=== PATIENT | female | born 1980 | race Caucasian/White ===

== ENCOUNTER 2019-11-20 07:38 | Outpatient (CLI) | payer OTHER, SELFPAY ==
--- NOTE | ~2019-11-20 | MM_ITS ---
EXAMINATION: MM screening [facility] BI w ever HISTORY: Screening mammogram TECHNIQUE: Craniocaudal and mediolateral oblique 3-D tomosynthesis images were obtained and synthetic 2-D images were generated. CAD analysis was submitted and interpreted. COMPARISON: No prior mammogram is available for comparison at this institution. BREAST PARENCHYMAL COMPOSITION: The breasts are extremely dense, which lowers the sensitivity of mamm ography. FINDINGS: There is irregular asymmetric density in the lower inner right breast at mid depth (MLO Doroteo osynthesis image 42/64). Diagnostic right mammogram is recommended, with ultrasound if required. Otherwise there is no evidence of suspicious mass, calcification, or architectural distortion to sugg est malignancy in either breast. There has been no suspicious interval change. IMPRESSION: 1. Right breast mammographic asymmetry 2. Diagnostic right mammogram is recommended, with ultrasound if required BI-RADS Category 0: Incomplete: Needs additional imaging evaluation. Reviewed, dictated and finalized at location A.
== END 2019-11-20 07:39 | disposition home or self-care (01) ==
LOC: ANHIMG 07:40
PROVIDERS: PCP Family Medicine; Visit Provider Obstetrics & Gynecology
DX: Z12.31 Encounter for screening mammogram for malignant neoplasm of breast (principal); R92.8 Other abnormal and inconclusive findings on diagnostic imaging of breast
CPT/HCPCS: 77063; 77067

== ENCOUNTER 2019-12-08 11:46 | Outpatient (CLI) | payer OTHER, SELFPAY ==
--- NOTE | ~2019-12-08 | MMUS_ITS ---
EXAMINATION: MM diagnostic mammo unilat RT, US breast RT limited HISTORY: Follow-up right breast asymmetry TECHNIQUE: Additional 3-D tomosynthesis images of the right breast were performed and synthetic 2-D i mages were generated. CAD analysis was submitted and interpreted. High resolution right breast ultras ound was performed. COMPARISON: 11/20/2019 BREAST PARENCHYMAL COMPOSITION: The breasts are heterogenously dense, which may obscure small masses. FINDINGS: MAMMOGRAPHIC FINDINGS: There are no suspicious masses, calcifications or architectural distortion in the right breast to sug gest malignancy. ULTRASOUND: Right breast ultrasound: At 4:00, 2 cm from the nipple, there is a 4 mm cyst. No suspicious masses to suggest malignancy. IMPRESSION: 1. No evidence for malignancy in the right breast. 2. Routine yearly screening mammogram and regular clinical breast examination are recommended. BI-RADS Category 2: Benign finding(s). Reviewed, dictated and finalized at location A. IMPRESSION: 1. No evidence for malignancy in the right breast. 2. Routine yearly screening mammogram and regular clinical breast examination a re recommended. BI-RADS Category 2: Benign finding(s).
== END 2019-12-08 11:47 | disposition home or self-care (01) ==
LOC: ANHIMG 11:47
PROVIDERS: PCP Family Medicine; Visit Provider Obstetrics & Gynecology
DX: R92.8 Other abnormal and inconclusive findings on diagnostic imaging of breast (principal)
CPT/HCPCS: 76642; 77065

== ENCOUNTER 2020-12-08 12:13 | Outpatient (CLI) | payer OTHER, SELFPAY ==
--- NOTE | ~2020-12-08 | MM_ITS ---
EXAMINATION: MM screening [facility] BI w ever HISTORY: Screening mammogram TECHNIQUE: Craniocaudal and mediolateral oblique 3-D tomosynthesis images were obtained and synthetic 2-D images were generated. CAD analysis was submitted and interpreted. COMPARISON: No prior mammogram is available for comparison at this institution. BREAST PARENCHYMAL COMPOSITION: The breasts are almost entirely fatty. FINDINGS: There is no evidence of suspicious mass, calcification, or architectural distortion to sugg est malignancy in either breast. There has been no suspicious interval change. IMPRESSION: 1. No mammographic evidence of malignancy. 2. Recommend routine screening mammography in one year. BI-RADS Category 1: Negative Reviewed, dictated and finalized at location A.
== END 2020-12-08 12:14 | disposition home or self-care (01) ==
LOC: ANHIMG 12:15
PROVIDERS: PCP Family Medicine; Visit Provider Obstetrics & Gynecology
DX: Z12.31 Encounter for screening mammogram for malignant neoplasm of breast (principal)
CPT/HCPCS: 77063; 77067

== ENCOUNTER 2022-04-03 08:38 | Outpatient (CLI) | payer OTHER, SELFPAY ==
--- NOTE | ~2022-04-03 | MM_ITS ---
EXAMINATION: MM screening [facility] BI w ever HISTORY: Screening TECHNIQUE: Craniocaudal and mediolateral oblique 3-D tomosynthesis images were obtained and synthetic 2-D images were generated. CAD analysis was submitted and interpreted. COMPARISON: Comparison to multiple prior studies sequentially, with oldest reviewed study dated 11/19. BREAST PARENCHYMAL COMPOSITION: The breasts are extremely dense, which lowers the sensitivity of mamm ography FINDINGS: There is a new focal asymmetry in the upper outer quadrant of the right breast anteriorly. The left breast is stable without evidence for malignancy. IMPRESSION: 1. New focal right breast asymmetry. 2. Additional mammographic views and possible breast ultrasound are recommended. BI-RADS Category 0: Incomplete: Needs additional imaging evaluation. Reviewed, dictated and finalized at location A. 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 New focal right breast asymmetry. 2. Additional mammographic views and possible breast ultrasound are recommended . BI-RADS Category 0: Incomplete: Needs additional imaging evaluation.
== END 2022-04-03 08:39 | disposition home or self-care (01) ==
LOC: ANHIMG 08:39
PROVIDERS: PCP Nurse Practitioner Family; Visit Provider Obstetrics & Gynecology
DX: Z12.31 Encounter for screening mammogram for malignant neoplasm of breast (principal); N64.89 Other specified disorders of breast
CPT/HCPCS: 77063; 77067

== ENCOUNTER 2022-04-20 12:15 | Outpatient (CLI) | payer OTHER, SELFPAY ==
--- NOTE | ~2022-04-20 | MMUS_ITS ---
EXAMINATION: MM diagnostic [facility] RT w ever, US breast RT limited HISTORY: New focal right breast asymmetry in upper outer quadrant anteriorly was reported on 3 20 mammogram TECHNIQUE: Additional 3-D tomosynthesis images of the right breast were performed and synthetic 2-D i mages were generated. Rolled medial craniocaudal and rolled lateral craniocaudal views. CAD analysis was submitted and interpreted. High resolution subareolar right breast ultrasound was performed. COMPARISON: 04/03/2022 bilateral screening mammogram FINDINGS: MAMMOGRAPHIC FINDINGS: There is heterogeneously dense stroma the right breast but no suspicious mass or architectural distor tion is evident. No malignant calcification, skin thickening or retraction is detected. ULTRASOUND: No suspicious mass or shadowing is detected in the subareolar area. IMPRESSION: 1. No mammographic evidence of malignancy 2. Routine annual mammographic screening is recommended BI-RADS Category 1: Negative Reviewed, dictated and finalized at location A. R IMPRESSION: 1. No mammographic evidence of malignancy 2. Routine annual mammographic screening is recommended BI-RADS Category 1: Negative
== END 2022-04-20 12:16 | disposition home or self-care (01) ==
PROVIDERS: PCP Nurse Practitioner Family; Visit Provider Obstetrics & Gynecology
DX: R92.8 Other abnormal and inconclusive findings on diagnostic imaging of breast (principal)
CPT/HCPCS: 76642; 77061; 77065; G0279

== ENCOUNTER 2023-05-07 14:40 | Outpatient (CLI) | payer OTHER, SELFPAY ==
--- NOTE | ~2023-05-07 | MM_ITS ---
EXAMINATION: MM screening [facility] BI w ever HISTORY: Screening mammogram TECHNIQUE: Craniocaudal and mediolateral oblique 3-D tomosynthesis images were obtained and synthetic 2-D images were generated. CAD analysis was submitted and interpreted. COMPARISON: April 20, 2022 diagnostic right mammogram and limited right breast ultrasound April 03, 2022, December 08, 2020 bilateral screening mammogram examinations BREAST PARENCHYMAL COMPOSITION: The breasts are extremely dense, which lowers the sensitivity of mamm ography. FINDINGS: There is no evidence of suspicious mass, calcification, or architectural distortion to sugg est malignancy in either breast. There has been no suspicious interval change. IMPRESSION: 1. No mammographic evidence of malignancy. 2. Recommend routine screening mammography in one year. BI-RADS Category 1: Negative Reviewed, dictated and finalized at location A. 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
== END 2023-05-07 14:41 | disposition home or self-care (01) ==
LOC: ANHIMG 14:55
PROVIDERS: PCP Family Medicine; Visit Provider Obstetrics & Gynecology
DX: Z12.31 Encounter for screening mammogram for malignant neoplasm of breast (principal)
CPT/HCPCS: 77063; 77067

== ENCOUNTER 2024-05-10 08:07 | Outpatient (CLI) | payer OTHER, SELFPAY ==
--- NOTE | ~2024-05-10 | MM_ITS ---
EXAMINATION: MM screening mar[facility] BI w ever HISTORY: Screening mammogram TECHNIQUE: Craniocaudal and mediolateral oblique 3-D tomosynthesis images were obtained and synthetic 2-D images were generated. CAD analysis was submitted and interpreted. COMPARISON: 05/07/2023, 04/03/2022, 12/08/2020 BREAST PARENCHYMAL COMPOSITION:Dense: The breasts are extremely dense, which lowers the sensitivity o f mammography. FINDINGS: No suspicious mass, calcification, or architectural distortion are identified in either naresh ast to suggest malignancy. There has been no suspicious interval change. IMPRESSION: No mammographic evidence of malignancy. Recommend routine screening mammography in one year. BI-RADS Category 1: Negative Reviewed, dictated and finalized at location .
--- OUTSIDE RECORDS SUMMARY | 2024-05-10 08:14 | XMS_ITS | Continuity of Care Document ---
Author Organization [facility] Address [address] [place] [address] [place] [address] Phone Care Team Providers Care Community Arts Officer Name Role Phone Dima Pal MD Unavailable Unavailable Allergies, Adverse Reactions, Alerts Substance Reaction Status Criticality No Known Allergies Active No Inform ation Procedures Procedure Date PREV VISIT, NEW, AGE 18-39 Advance Directives Directive Yes / No Effective Date File Name No Information Encounters Encounter Description Practice Location Reason(s) For Visit Diagnoses Date Provider Providers Copied on Encounter PREV VISIT, NEW, AGE 18-39 [facility], [address] [place], [place], [id number], [place] tel:[phone] [facility] Physical (chief complaint) Dietary surveillance and counselingRoutine Medical ExamRoutine Medical Exam [address], [facility] [place], [id number] , [place]. tel:[phone] Family History Family Member Type Diagnosis Age At Onset Father Problem (finding) Hypertension Father Problem (finding) Alive and well Mother Problem (finding) Alive and well Sister Problem (finding) Alive and well Payers Payer name Insurance type Covered libertarian ID Authoriza tion(s) No Information Social History Type Description Quantity Date Captured Comments Alcohol Use Details No Caffeine Use Details Unknown Tobacco Use Status No Information Smoking Status Never smoker Non-Smoking Tobacco Use Details : No Details Available : No Details Available Sex Female Vital Signs Date / Time: Height Weight BMI Pulse Rate Blood Pressure Temperature Respiratory Rate Body Surface Area Head Circumference BMI percentile Pulse Ox Inhaled Ox 4:56 PM 71.00 in 190.00 lbs 26.5 0 kg/m eter (2) 83 /min 120/85 mm[Hg] 98.6 F 18 /min Chief Complaint And Reason For Visit From encounter dated '04/08/2013 16:42'. Physical (chief complaint) Plan Of Treatment Date Type Action Status No Information History Of Present Illness Encounter Date Complaint History Of Prese nt Illness No Information Instructions Date Instruction Additional Infor triston Dietary counseling Related to Di etary surveillance counseling Decrease caloric intake Related to Dietary surveillance counseling Assessments Type Assessment Date No Information Mental Status Date Cognitive Assessment Orientation - [place] ed to time, place, person, situation.
--- OUTSIDE RECORDS SUMMARY | 2024-05-10 08:14 | XMS_ITS | Data Portability ---
Author Organization [place] [employer], Main Office Address [address] [place] [id number] Care Team Providers Care Cupola Worker Name Role Phone JERALD JURADO Primary Care Provider Assessment Encounter Date Assessment Date Assessment LastModified by Organization Details LastModified Time 09/17/2023 09/17/2023 43 yo F with - WT LOSS PROGRAM - HTN - DEPRESSION - ANXIETY - OBESITY I Annual labs: 12/20/23. Wt: 221(03/21/23) - 215(04/17/23) - 209(05/16/23) - 203(07/16/23) - 199(09/17/23) D/w pt in detail about her findings, recent labs and further plan of care. Form filled out and given to pt. Meds as directed. Diet and exercise explained in detail. Educated about different options for her. BP diary education given. Cont f/u with Gyne as per schedule. Offered to refer to counsellor; but pt declined. HM: WWE - 10/25, normal as per pt. Cont f/u with Gyne as per schedule. Mammo - 05/07/23, normal. Flu - 12/19/22. Tdap - At pharmacy/HD. F/u in 2 months. Annual labs in 12/27. [email or web address] Not available 09/17/2023 10:01:05 11/19/2023 11/19/2023 43 yo F with - WT LOSS PROGRAM - HTN - DEPRESSION - ANXIETY - OVERWEIGHT - H/O OBESITY I Annual labs: 12/20/23. Wt: 221(03/21/23) - 215(04/17/23) - 209(05/16/23) - 203(07/16/23) - 199(09/17/23) - 189(11/19/23) D/w pt in detail about her findings, recent labs and further plan of care. Meds as directed. Diet and exercise explained in detail. Educated about different options for her. BP diary education given. Cont f/u with Gyne as per schedule. Offered to refer to counsellor; but pt declined. HM: WWE - 10/25, normal as per pt. Cont f/u with Gyne as per schedule. Mammo - 05/07/23, normal. Flu - 12/19/22. Tdap - At pharmacy/HD. F/u in 2 months. Annual labs in 12/27. [email or web address] Not available 11/19/2023 17:32:40 01/21/2024 01/21/2024 43 yo F with - WELL ADULT VISIT - WT LOSS PROGRAM - HTN - DEPRESSION - ANXIETY - OVERWEIGHT - H/O OBESITY I Annual labs: 12/20/23. Wt: 221(03/21/23) - 215(04/17/23) - 209(05/16/23) - 203(07/16/23) - 199(09/17/23) - 189(11/19/23) - 182(01/21/24) D/w pt in detail about her findings, recent labs and further plan of care. Will do routine labs. Meds as directed. Diet and exercise explained in detail. Educated about different options for her. BP diary education given. Cont f/u with Gyne as per schedule. Offered to refer to counsellor; but pt declined. HM: WWE - 12/26, normal as per pt. Cont f/u with Gyne as per schedule. Mammo - 05/07/23, normal. Flu - 01/21/24. Tdap - At pharmacy/HD. F/u in 1 month. Annual labs in 12/27. Not available 01/21/2024 09:48:18 02/20/2024 02/20/2024 44 yo F with - WT LOSS PROGRAM - HTN - DEPRESSION - ANXIETY - VIT D DEFICIENCY - OVERWEIGHT - H/O OBESITY I Annual labs: 01/21/24. Annual labs: 12/20/23. Wt: 221(03/21/23) - 215(04/17/23) - 209(05/16/23) - 203(07/16/23) - 199(09/17/23) - 189(11/19/23) - 182(01/21/24) - 180(02/20/24) D/w pt in detail about her findings, recent labs and further plan of care. Meds as directed. Diet and exercise explained in detail. Educated about different options for her. BP diary education given. Cont f/u with Gyne as per schedule. Offered to refer to counsellor; but pt declined. HM: WWE - 12/26, normal as per pt. Cont f/u with Gyne as per schedule. Mammo - 05/07/23, normal. Flu - 01/21/24. Tdap - At pharmacy/HD. F/u in 2 months. Annual labs in 12/27. Not available 02/20/2024 09:19:01 04/28/2024 04/28/2024 44 yo F with - WT LOSS PROGRAM - HTN - DEPRESSION - ANXIETY - VIT D DEFICIENCY - OVERWEIGHT - H/O OBESITY I Annual labs: 01/21/24. Annual labs: 12/20/23. Wt: 221(03/21/23) - 215(04/17/23) - 209(05/16/23) - 203(07/16/23) - 199(09/17/23) - 189(11/19/23) - 182(01/21/24) - 180(02/20/24) - 183(04/28/24) D/w pt in detail about her findings, recent labs and further plan of care. Meds as directed. Diet and exercise explained in detail. Educated about different options for her. BP diary education given. Cont f/u with Gyne as per schedule. Offered to refer to counsellor; but pt declined. HM: WWE - 12/26, normal as per pt. Cont f/u with Gyne as per schedule. Mammo - 05/07/23, normal. Flu - 01/21/24. Tdap - At pharmacy/HD. F/u in 2.5 months. Annual labs in 12/27. Not available 04/28/2024 17:16:59 Plan of Treatment Reminders Order Date Submit Date Provider Last Modified By Organization Details Last Modified Time Details Appointments Follow Up 15 2024 04:15P Reina Jurado MD Not available Not available Not available Lab vitamin D, 25-hydrox y, total, serum [address] [facility], [address] [place], [address], 01/21/2024 11:10:41 HbA1c (hemoglob in A1c), blood [address] [facility], [address] [place], [address], 01/21/2024 11:10:22 CBC w/ auto diff [address] [facility], [address] [place], [address], 01/21/2024 11:08:25 CMP, serum or plasma [address] [facility], [address] [place], [address], 01/21/2024 11:08:47 lipid panel, serum [address] [facility], [address] [place], [address], 01/21/2024 11:09:08 TSH, serum, reflex free T4 [address] [facility], [address] [place], [address], 01/21/2024 11:09:29 urinalysi s complete, reflex culture [address] [facility], [address] [place], [address], 01/21/2024 11:09:55 Referral None recorded. Procedures None recorded. Surgeries None recorded. Imaging None recorded. Medication Orders losartan 50 mg tablet 2024 025 [facility] [facility] [place], [address], 04/28/2024 17:17:29 phentermi ne 37.5 mg tablet 2024 025 [facility] [facility] [place], [address], 04/28/2024 17:17:30 phentermi ne 30 mg capsule 2023 024 [facility] [facility] [place], [address], 02/20/2024 09:15:58 ergocalci ferol (vitamin D2) 1,250 mcg (50,000 unit) capsule 2023 024 [facility] [employer] [facility], [place], [address], 02/20/2024 09:15:55 phentermi ne 30 mg capsule 2023 024 [facility] [facility], [place], [address], 01/21/2024 09:34:08 phentermi ne 30 mg capsule 2023 024 [facility] [address] [employer] [facility] [place], [address], 11/19/2023 17:31:08 losartan 50 mg tablet 2023 024 [facility] [address] [employer], [place], [address], 11/19/2023 17:31:05 phentermi ne 30 mg capsule 2023 024 [facility] [address] [employer], [place], [address], 09/17/2023 09:50:42 fluoxetin e 40 mg capsule 2023 024 [email or web address] [address] [place], [address], 09/17/2023 09:51:17 Patient TargetsNo targets recorded. Patient Instructions Encounter Date Encounter Id Patient Instructions Last Modified By Organization Details Last Modified Time 09/17/2023 [id number] starting a weigh t loss plan: care instructions [email or web address] Not available 09/17/2023 09:50:34 learning about obesity [email or web address] Not available 09/17/2023 09:50:34 11/19/2023 [id number] starting a weigh t loss plan: care instructions [email or web address] Not available 11/19/2023 17:30:58 learning about obesity [email or web address] Not available 11/19/2023 17:30:58 01/21/2024 [id number] starting a weigh t loss plan: care instructions Not available 01/21/2024 09:34:02 02/20/2024 [id number] starting a weigh t loss plan: care instructions [email or web address] Not available 02/20/2024 09:15:48 04/28/2024 [id number] starting a weigh t loss plan: care instructions [email or web address] Not available 04/28/2024 17:17:22 Reason for Referral None Reported. Results Created Date Observation Date Name Description Value Unit Range Abnormal Flag Note LastModifiedBy Organization Detail LastModifiedTime 01/21/2001/21/2024 CBC/C OMPLE TE BLD COUNT W/DIF F white blood cells 5.3 x10'3 /uL 4.2-10 .8 Not Available [facility] (Lab) [address] [place], [address], 01/21/2024 14:01:22 01/21/2001/21/2024 CBC/C OMPLE TE BLD COUNT W/DIF F red blood cells 4.32 x10'6 /uL 3.80-5 .20 Not Available [facility] (Lab) [address] [place], [address], 01/21/2024 14:01:22 01/21/20 24 01/21/2024 CBC/C OMPLE TE BLD COUNT W/DIF F hemoglobin 12.8 g/dL 12.0-1 5.6 Not Available [facility] (Lab) [address] [place], [address], 01/21/2024 14:01:22 01/21/20 24 01/21/2024 CBC/C OMPLE TE BLD COUNT W/DIF F hematocrit 39.7 % 35.7-4 5.7 Not Available [facility] (Lab) [address] [place], [address], 01/21/2024 14:01:22 01/21/20 24 01/21/2024 CBC/C OMPLE TE BLD COUNT W/DIF F mean red cell volume 91.9 fL 82.0-9 9.0 Not Available [facility] (Lab) [address] [place], [address], 01/21/2024 14:01:22 01/21/20 24 01/21/2024 CBC/C OMPLE TE BLD COUNT W/DIF F mean red cell hemoglobin 29.6 pg 27.0-3 3.0 Not Available [facility] (Lab) [address] [place], [address], 01/21/2024 14:01:22 01/21/20 24 01/21/2024 CBC/C OMPLE TE BLD COUNT W/DIF F mean RBC HGB concentratio n 32.2 g/dL 31.0-3 6.0 Not Available [facility] (Lab) [address] [place], [address], 01/21/2024 14:01:22 01/21/20 24 01/21/2024 CBC/C OMPLE TE BLD COUNT W/DIF F red cell distribution width 13.2 % 11.8-1 5.5 Not Available [facility] (Lab) [address] [place], [address], 01/21/2024 14:01:22 01/21/20 24 01/21/2024 CBC/C OMPLE TE BLD COUNT W/DIF F platelets 243 x10'3 /uL 150-40 0 Not Available [facility] (Lab) [address] [place], [address], 01/21/2024 14:01:22 01/21/20 24 01/21/2024 CBC/C OMPLE TE BLD COUNT W/DIF F mean platelet volume 11.5 fL 9.0-12 .4 Not Available [facility] (Lab) [address] [place], [address], 01/21/2024 14:01:22 01/21/20 24 01/21/2024 CBC/C OMPLE TE BLD COUNT W/DIF F neutrophils 66.8 % 39.0-7 2.0 Not Available [facility] (Lab) [address] [place], [address], 01/21/2024 14:01:22 01/21/20 24 01/21/2024 CBC/C OMPLE TE BLD COUNT W/DIF F lymphocytes 23.2 % 16.0-4 7.0 Not Available [facility] (Lab) [address] [place], [address], 01/21/2024 14:01:22 01/21/20 24 01/21/2024 CBC/C OMPLE TE BLD COUNT W/DIF F monocytes 6.8 % 5.0-12 .0 Not Available [facility] (Lab) [address] [place], [address], 01/21/2024 14:01:22 01/21/20 24 01/21/2024 CBC/C OMPLE TE BLD COUNT W/DIF F eosinophils 1.7 % 1.0-7. 0 Not Available [facility] (Lab) [address] [place], [address], 01/21/2024 14:01:22 01/21/20 24 01/21/2024 CBC/C OMPLE TE BLD COUNT W/DIF F basophils 1.3 % 0.0-2. 0 Not Available [facility] (Lab) [address] [place], [address], 01/21/2024 14:01:22 01/21/20 24 01/21/2024 CBC/C OMPLE TE BLD COUNT W/DIF F immature granulocytes 0.2 % 0.00-0 .50 Not Available [facility] (Lab) [address] [place], [address], 01/21/2024 14:01:22 01/21/20 24 01/21/2024 CBC/C OMPLE TE BLD COUNT W/DIF F neutrophils, absolute count 3.55 x10'3 /uL 1.5-8. 0 Not Available [facility] (Lab) [address] [place], [address], 01/21/2024 14:01:22 01/21/20 24 01/21/2024 CBC/C OMPLE TE BLD COUNT W/DIF F lymphocytes, absolute count 1.23 x10'3 /uL 1.07-3 .43 Not Available [facility] (Lab) [address] [place], [address], 01/21/2024 14:01:22 01/21/20 24 01/21/2024 CBC/C OMPLE TE BLD COUNT W/DIF F monocytes, absolute count 0.36 x10'3 /uL 0.29-0 .99 Not Available [facility] (Lab) [address] [place], [address], 01/21/2024 14:01:22 01/21/20 24 01/21/2024 CBC/C OMPLE TE BLD COUNT W/DIF F eosinophils, absolute count 0.09 x10'3 /uL 0.02-0 .53 Not Available [facility] (Lab) [address] [place], [address], 01/21/2024 14:01:22 01/21/20 24 01/21/2024 CBC/C OMPLE TE BLD COUNT W/DIF F basophils, absolute count 0.07 x10'3 /uL 0.01-0 .08 Not Available [facility] (Lab) [address] [place], [address], 01/21/2024 14:01:22 01/21/20 24 01/21/2024 CBC/C OMPLE TE BLD COUNT W/DIF F immature granulocytes ,absolute 0.01 x10'3 /uL 0.00-0 .05 Not Available [facility] (Lab) [address] [place], [address], 01/21/2024 14:01:22 01/21/20 24 01/21/2024 CBC/C OMPLE TE BLD COUNT W/DIF F nucleated red blood cells 0.0 % -0 Not Available [facility] (Lab) [address] [place], [address], 01/21/2024 14:01:22 01/21/20 24 01/21/2024 CBC/C OMPLE TE BLD COUNT W/DIF F NRBC# 0.00 x10'3 /uL Not Available [facility] (Lab) [address] [place], [address], 01/21/2024 14:01:22 01/21/20 24 01/21/2024 URINA LYSIS COMPL ETE/I RIS W/RFX color COLORL ESS Not Available [facility] (Lab) [address] [place], [address], 01/21/2024 14:02:53 01/21/20 24 01/21/2024 URINA LYSIS COMPL ETE/I RIS W/RFX appear CLEAR Not Available [facility] (Lab) [address] [place], [address], 01/21/2024 14:02:53 01/21/20 24 01/21/2024 URINA LYSIS COMPL ETE/I RIS W/RFX specific gravity 1.003 1.001- 1.030 Not Available [facility] (Lab) [address] [place], [address], 01/21/2024 14:02:53 01/21/20 24 01/21/2024 URINA LYSIS COMPL ETE/I RIS W/RFX pH 7.0 pH_un its 5.0-9. 0 Not Available [facility] (Lab) [address] [place], [address], 01/21/2024 14:02:53 01/21/20 24 01/21/2024 URINA LYSIS COMPL ETE/I RIS W/RFX leukocytes NEGATI VE kristopher/u L negati ve- Not Available [facility] (Lab) [address] [place], [address], 01/21/2024 14:02:53 01/21/20 24 01/21/2024 URINA LYSIS COMPL ETE/I RIS W/RFX nitrite NEGATI VE negati ve- Not Available [facility] (Lab) [address] [place], [address], 01/21/2024 14:02:53 01/21/20 24 01/21/2024 URINA LYSIS COMPL ETE/I RIS W/RFX protein NEGATI VE mg/dL negati ve- Not Available [facility] (Lab) [address] [place], [address], 01/21/2024 14:02:53 01/21/20 24 01/21/2024 URINA LYSIS COMPL ETE/I RIS W/RFX glucose NORMAL mg/dL normal - Not Available [facility] (Lab) [address] [place], [address], 01/21/2024 14:02:53 01/21/20 24 01/21/2024 URINA LYSIS COMPL ETE/I RIS W/RFX ketones NEGATI VE mg/dL negati ve- Not Available [facility] (Lab) [address] [place], [address], 01/21/2024 14:02:53 01/21/20 24 01/21/2024 URINA LYSIS COMPL ETE/I RIS W/RFX urobilinogen NORMAL mg/dL normal - Not Available [facility] (Lab) [address] [place], [address], 01/21/2024 14:02:53 01/21/20 24 01/21/2024 URINA LYSIS COMPL ETE/I RIS W/RFX bilirubin NEGATI VE mg/dL negati ve- Not Available [facility] (Lab) [address] [place], [address], 01/21/2024 14:02:53 01/21/20 24 01/21/2024 URINA LYSIS COMPL ETE/I RIS W/RFX blood NEGATI VE mg/dL negati ve- Not Available [facility] (Lab) [address] [place], [address], 01/21/2024 14:02:53 01/21/20 24 01/21/2024 COMPR EHENS PING METAB OLIC PANEL sodium 136 mmol/ L 137-14 5 low Not Available [facility] (Lab) [address] [place], [address], 01/21/2024 14:12:45 01/21/20 24 01/21/2024 COMPR EHENS PING METAB OLIC PANEL potassium 4.0 mmol/ L 3.5-5. 1 Not Available [facility] (Lab) [address] [place], [address], 01/21/2024 14:12:45 11/18/20 24 01/21/2024 COMPR EHENS PING METAB OLIC PANEL chloride 105 mmol/ L 98-107 Not Available [facility] (Lab) [address] [place], [address], 01/21/2024 14:12:45 01/21/20 24 01/21/2024 COMPR EHENS PING METAB OLIC PANEL carbon dioxide 25 mmol/ L 22-30 Not Available [facility] (Lab) [address] [place], [address], 01/21/2024 14:12:45 01/21/20 24 01/21/2024 COMPR EHENS PING METAB OLIC PANEL anion gap 10.0 mmol/ L 14-22 low Not Available [facility] (Lab) [address] [place], [address], 01/21/2024 14:12:45 01/21/20 24 01/21/2024 COMPR EHENS PING METAB OLIC PANEL glucose 91 mg/dL 70-99 Not Available [facility] (Lab) [address] [place], [address], 01/21/2024 14:12:45 01/21/20 24 01/21/2024 COMPR EHENS PING METAB OLIC PANEL BUN 10 mg/dL 8-19 Not Available [facility] (Lab) [address] [place], [address], 01/21/2024 14:12:45 01/21/20 24 01/21/2024 COMPR EHENS PING METAB OLIC PANEL creatinine 0.92 mg/dL 0.66-1 .25 Not Available [facility] (Lab) [address] [place], [address], 01/21/2024 14:12:45 01/21/20 24 01/21/2024 COMPR EHENS PING METAB OLIC PANEL GFR >60 Refer ence Range : [place] ge GFR Healt hy Adult : >60 mL/mi n/1.7 3 m2 Chron ic Kidne y Disea se: 15-60 mL/mi n/1.7 3 m2 Kidne y Failu re: <15/m L/min /1.73 m2 www.n iddk. nih.g ov The MDRD study equat ion has not been valid ated in child fiona <18 years of age; pregn ant women ; the elder ly >85 years of age; or in some racia l or ethni c subgr oups, such as Hispa nics. Outsi de the valid ated mandy eters , estim ated GFR is less accur ate, requi ring clini terrie judgm ent on a case- by-ca se basis . Clini terrie inter preta tion for other races and ages must be made by the clini sury. The MDRD study equat ion has not been valid ated for the evalu ation of serum creat inine relat ed to nutri primo l statu s or medic ation usage . For perso ns <18 years of age, a pedia tric GFR calcu lator is avail able on the [facility] websi te: https ://reymundo w.kid shannan.o rg/pr ofess ional s/kdo qi/gf r_cal culat or Not Available [facility] (Lab) [address] [place], [address], 01/21/2024 14:12:45 01/21/20 24 01/21/2024 COMPR EHENS PING METAB OLIC PANEL alkaline phosphatase 59 U/L 38-126 Not Available [facility] (Lab) [address] [place], [address], 01/21/2024 14:12:45 01/21/20 24 01/21/2024 COMPR EHENS PING METAB OLIC PANEL alanine aminotransfe rase 20 U/L 0-35 Not Available [facility] (Lab) [address] [place], [address], 01/21/2024 14:12:45 01/21/20 24 01/21/2024 COMPR EHENS PING METAB OLIC PANEL aspartate aminotransfe rase 32 U/L 15-37 Not Available [facility] (Lab) [address] [place], [address], 01/21/2024 14:12:45 01/21/20 24 01/21/2024 COMPR EHENS PING METAB OLIC PANEL bilirubin, total 0.50 mg/dL 0.20-1 .30 Not Available [facility] (Lab) [address] [place], [address], 01/21/2024 14:12:45 01/21/20 24 01/21/2024 COMPR EHENS PING METAB OLIC PANEL calcium 9.7 mg/dL 8.4-10 .2 Not Available [facility] (Lab) [address] [place], [address], 01/21/2024 14:12:45 01/21/20 24 01/21/2024 COMPR EHENS PING METAB OLIC PANEL total protein 6.7 g/dL 6.3-8. 2 Not Available [facility] (Lab) [address] [place], [address], 01/21/2024 14:12:45 01/21/20 24 01/21/2024 COMPR EHENS PING METAB OLIC PANEL albumin 4.4 g/dL 3.4-5. 0 Not Available [facility] (Lab) [address] [place], [address], 01/21/2024 14:12:45 01/21/20 24 01/21/2024 COMPR EHENS PING METAB OLIC PANEL globulin 2.3 g/dL 2.6-4. 2 low Not Available [facility] (Lab) [address] [place], [address], 01/21/2024 14:12:45 01/21/20 24 01/21/2024 COMPR EHENS PING METAB OLIC PANEL A/G ratio 1.9 ratio 1.0-2. 0 Not Available [facility] (Lab) [address] [place], [address], 01/21/2024 14:12:45 01/21/20 24 01/21/2024 LIPID PANEL cholesterol 176 mg/dL 140-19 9 [facility] SHAHIDA NSUS RECOM MENDA TION FOR RYLEE STERO L: ADULT CHILD LOW RISK: <200 <170 BORDE RLINE : <200- 239 ----- HIGH RISK: >240 >200 Not Available [facility] (Lab) [address] [place], [address], 01/21/2024 14:12:48 01/21/20 24 01/21/2024 LIPID PANEL triglyceride s 72 mg/dL 0-150 NIH SHAHIDA NSUS REPOR T RECOM MENDA TION FOR TRIGL YCERI GIO: ADULT CHILD LOW RISK: <150 ----- BODER LINE: 150-1 99 ----- HIGH RISK: >200 ----- Not Available [facility] (Lab) [address] [place], [address], 01/21/2024 14:12:48 01/21/20 24 01/21/2024 LIPID PANEL HDL cholesterol 102 mg/dL 40- Not Available [facility] (Lab) [address] [place], [address], 01/21/2024 14:12:48 01/21/20 24 01/21/2024 LIPID PANEL LDL cholesterol, calculated 60 mg/dL 0-130 NIH SHAHIDA NSUS REPOR T RECOM MENDA TIONS FOR LDL: ADULT CHILD LOW RISK <130 <110 (OPTI MAL LDL) <100 ----- BORDE RLINE : 130-1 59 ----- HIGH RISK: >160 >130 A TRIGL YCERI DE RESUL T >400 INVAL IDATE S THE CALCU LATIO N FOR LDL FRACT IONAT ION - THE LDL RESUL T WILL NOT BE REPOR NORMAN. Not Available [facility] (Lab) [address] [place], [address], 01/21/2024 14:12:48 01/21/20 24 01/21/2024 URINA LYSIS COMPL ETE/I RIS W/RFX color COLORL ESS Not Available [facility] (Lab) [address] [place], [address], 01/21/2024 14:14:58 01/21/20 24 01/21/2024 URINA LYSIS COMPL ETE/I RIS W/RFX appear CLEAR Not Available [facility] (Lab) [address] [place], [address], 01/21/2024 14:14:58 01/21/2001/21/2024 URINA LYSIS COMPL ETE/I RIS W/RFX specific gravity 1.003 1.001- 1.030 Not Available [facility] (Lab) [address] [place], [address], 01/21/2024 14:14:58 01/21/2001/21/2024 URINA LYSIS COMPL ETE/I RIS W/RFX pH 7.0 pH_un its 5.0-9. 0 Not Available [facility] (Lab) [address] [place], [address], 01/21/2024 14:14:58 01/21/20 24 01/21/2024 URINA LYSIS COMPL ETE/I RIS W/RFX leukocytes NEGATI VE kristopher/u L negati ve- Not Available [facility] (Lab) [address] [place], [address], 01/21/2024 14:14:58 01/21/2001/21/2024 URINA LYSIS COMPL ETE/I RIS W/RFX nitrite NEGATI VE negati ve- Not Available [facility] (Lab) [address] [place], [address], 01/21/2024 14:14:58 01/21/20 24 01/21/2024 URINA LYSIS COMPL ETE/I RIS W/RFX protein NEGATI VE mg/dL negati ve- Not Available [facility] (Lab) [address] [place], [address], 01/21/2024 14:14:58 01/21/20 24 01/21/2024 URINA LYSIS COMPL ETE/I RIS W/RFX glucose NORMAL mg/dL normal - Not Available [facility] (Lab) [address] [facility] [place], [address], 01/21/2024 14:14:58 01/21/2001/21/2024 URINA LYSIS COMPL ETE/I RIS W/RFX ketones NEGATI VE mg/dL negati ve- Not Available [facility] (Lab) [address] [place], [address], 01/21/2024 14:14:58 01/21/20 24 01/21/2024 URINA LYSIS COMPL ETE/I RIS W/RFX urobilinogen NORMAL mg/dL normal - Not Available [facility] (Lab) [address] [place], [address], 01/21/2024 14:14:58 01/21/20 24 01/21/2024 URINA LYSIS COMPL ETE/I RIS W/RFX bilirubin NEGATI VE mg/dL negati ve- Not Available [facility] (Lab) [address] [place], [address], 01/21/2024 14:14:58 01/21/20 24 01/21/2024 URINA LYSIS COMPL ETE/I RIS W/RFX blood NEGATI VE mg/dL negati ve- Not Available [facility] (Lab) [address] [place], [address], 01/21/2024 14:14:58 01/21/20 24 01/21/2024 URINA LYSIS COMPL ETE/I RIS W/RFX white blood cells 0-8 /i??h pfi?? 0-8 Not Available [facility] (Lab) [address] [place], [address], 01/21/2024 14:14:58 01/21/20 24 01/21/2024 URINA LYSIS COMPL ETE/I RIS W/RFX red blood cells 0-4 /i??h pfi?? 0-4 Not Available [facility] (Lab) [address] [place], [address], 01/21/2024 14:14:58 01/21/20 24 01/21/2024 URINA LYSIS COMPL ETE/I RIS W/RFX bacteria OCCASI ONAL abnormal Not Available [facility] (Lab) [address] [place], [address], 01/21/2024 14:14:58 01/21/20 24 01/21/2024 URINA LYSIS COMPL ETE/I RIS W/RFX squamous epithelial FEW /i??l pfi?? abnormal Not Available [facility] (Lab) [address] [place], [address], 01/21/2024 14:14:58 01/21/20 24 01/21/2024 HEMOG LOBIN A1C HA1C 5.6 % 4.0-6. 0 Diabe carmen Scree chucho Crite mary: <5.7% Consi stent with absen ce of diabe carmen 5.7-6 .4% Consi stent with incre ased risk for diabe carmen (pred iabet es) >OR=6 .5% Consi stent with diabe carmen REFER ENCE: Diabe carmen Care 2016, 39(Thapa ppl.1 ):s13 -s22 Not Available [facility] (Lab) [address] [place], [address], 01/21/2024 14:16:38 01/21/20 24 01/21/2024 VITAM IN D 25-HY DROXY vd25oh 29.6 NG/mL 30-100 low Vitam in D Statu s: Defic ient: <20 ng/mL Insuf ficie nt: 20-29 ng/mL Suffi cient : 30-10 0 ng/mL Not Available [facility] (Lab) [address] [place], [address], 01/21/2024 14:32:56 01/21/20 24 01/21/2024 TSH W/REF JEAN-CLAUDE FT4 TSH with reflex free T4 2.140 uIU/m L 0.465- 4.680 Not Available [facility] (Lab) [address] [place], [address], 01/21/2024 14:47:00 Result Notes None recorded. Problems Name Problem SNOMED Code Status Onset Date Resolution Date Notes Provider Name and Address Organization Details Recorded Time Elevated blood-pressur e reading without diagnosis of hypertension 011433880 Active 2021 [facility] Available [facility] 01:31:35 Essential hypertension 55683257 Active 2021 Not [facility] 01:31:35 Conjunctiviti s 8504197 Active 2022 Eli Su NP [address] [facility], [address], [address] , [employer] 3 13:02:39 Hypertensive disorder 86587759 Active 2023 Jerald Jurado MD [address] [facility], [address], [address] , [employer] 4 09:15:06 Depressive disorder 68082033 Active 2023 Jerald Jurado MD [address] [facility], [address], [address] , [employer] 4 09:15:14 Anxiety disorder 272040324 Active 2023 Jerald Jurado MD [address] [facility], [address], [address] , [employer] 4 09:15:18 Overweight 973019198 Active 2023 Jerald Jurado MD [address], [address], [place], [address] , [employer] 4 09:47:30 History of obesity 498335194 Active 2023 Jerald Jurado MD [address], [address], [place], [address] , [employer] 4 09:47:50 Obesity 236586165 Active 2023 Jerald Jurado MD [address], [address], [place], [address] , [employer] 4 09:11:27 Vitamin D deficiency 80676360 Active 2023 Jerald Jurado MD [address], [address], [place], [address] , [employer] 4 09:14:30 Problem Notes None recorded. Procedures Surgical History Date Name Laterality Status Provider Name and Address Organization Details Recorded Time 4 Date of Last Pap Smear completed Jerald Jurado MD [address], [address], [place], [address], [employer] 01/21/2024 09:46:40 4 Date of Last Mammogram completed Jerald Jurado MD [address], [address], [place], [address], [employer] 05/16/2023 11:52:35 8 Tubal Ligation completed Not Available [facility] 01:31:04 Imaging Results None recorded. Procedure Notes None recorded. Medical Equipment None Reported. Allergies No known drug allergies Medications Name Sig Start Date Stop Date Status Note LastModified by Organization Details LastModified Time losartan 50 mg tablet Take 1 tablet by mouth once daily 2024 active Not Available Not Available Not Avai lable fluoxetine 40 mg capsule TAKE 1 CAPSULE BY MOUTH ONCE DAILY DIRECTED active Not Available Not Available No t Available valacyclovi r 1 gram tablet TAKE 1 TABLET BY MOUTH THREE TIMES DAILY NEEDED FOR 7 DAYS 12/07 completed Not Available Not Available Not Available phentermine 15 mg capsule TAKE 1 CAPSULE BY MOUTH ONCE DAILY IN THE MORNING 09/16 completed Not Available Not Available Not Available phentermine 37.5 mg tablet Take 1 tablet every day by oral route for 30 days. 2024 active Not Available Not Available Not Avai lable tramadol 50 mg tablet 12/19 completed Not Available Not Available Not Available phentermine 30 mg capsule Take 1 capsule every day by oral route in the morning for 30 days. 2024 active Not Available Not Available Not Avai lable sulfacetami de sodium 10 % eye drops INSTILL ONE DROP INTO THE AFFECTED EYE(S) EVERY 2-3 HOURS DURING THE DAY AND LESS FREQUENTL Y AT NIGHT FOR 5-7 DAYS 03/21 completed Not Available Not Available Not Available lisinopril 10 mg tablet TAKE 1 TABLET BY MOUTH ONCE DAILY 09/06 completed Not Available Not Available Not Available ergocalcife rol (vitamin D2) 1,250 mcg (50,000 unit) capsule TAKE 1 CAPSULE BY MOUTH ONCE A WEEK DIRECTED active Not Available Not Available No t Available methylpredn isolone 4 mg tablets in a dose pack 12/19 completed Not Available Not Available Not Available fluoxetine 20 mg capsule TAKE 1 CAPSULE BY MOUTH ONCE DAILY 03/21 completed Not Available Not Available Not Available Vitals Date Recorded Body height Body mass index (BMI) Body weight Body temperature Heart rate Respiratory rate Oxygen saturation Oxygen saturation in Arterial blood by Pulse oximetry Systolic blood pressure Diastolic blood pressure Provider Name and Address Organization Details Last Updated DateTime 4 172.72 cm 30.3 kg/m2 15223.2 3 g 97.1 [degF] 78 /min 16 /min 99 % 99 % 128 mm[Hg] 78 mm[Hg] Darrius Larios [facility] 4 09:44:40 Date Recorded Body height Body mass index (BMI) Body weight Body temperature Respiratory rate Heart rate Oxygen saturation Oxygen saturation in Arterial blood by Pulse oximetry Provider Name and Address Organization Details Last Updated DateTime 4 172.72 cm 28.8 kg/m2 33136.3 2 g 98.5 [degF] 16 /min 78 /min 98 % 98 % Rowan Quintanilla RN [facility] [employer] [facility] 4 17:24:06 Date Recorded Systolic blood pressure Diastolic blood pressure Provider Name and Address Organization Details Last Updated DateTime 11/19/2023 138 mm[Hg] 84 mm[Hg] Jerald Jurado MD [address], [address], [place], [address], [facility] [employer] [facility] 11/19/2023 17:38:04 Date Recorded Body height Body mass index (BMI) Body weight Body temperature Heart rate Oxygen saturation Oxygen saturation in Arterial blood by Pulse oximetry Systolic blood pressure Diastolic blood pressure Provider Name and Address Organization Details Last Updated DateTime 4 172.72 cm 27.7 kg/m2 05027.1 6 g 97.9 [degF] 88 /min 97 % 97 % 122 mm[Hg] 82 mm[Hg] Ammy French RN [facility] [employer] [facility] 4 09:21:27 Date Recorded Body height Body temperature Oxygen saturation Oxygen saturation in Arterial blood by Pulse oximetry Heart rate Systolic blood pressure Diastolic blood pressure Provider Name and Address Organization Details Last Updated DateTime 4 172.72 cm 97.9 [degF] 96 % 96 % 72 /min 130 mm[Hg] 72 mm[Hg] Ammy French RN [facility] [employer] [facility] 4 09:09:43 Date Recorded Body mass index (BMI) Body weight Provider Name and Address Organization Details Last Updated DateTime 02/20/2024 27.4 kg/m2 85924.08 g Jerald Jurado MD [address], [address], [address], [facility] [employer] [facility] 02/20/2024 09:13:16 Date Recorded Body height Body mass index (BMI) Body weight Body temperature Oxygen saturation Oxygen saturation in Arterial blood by Pulse oximetry Heart rate Systolic blood pressure Diastolic blood pressure Provider Name and Address Organization Details Last Updated DateTime 5 172.72 cm 27.9 kg/m2 87696.9 2 g 97.5 [degF] 99 % 99 % 83 /min 128 mm[Hg] 86 mm[Hg] Marily Fair RN [facility] [employer] [facility] 17:10:55 Social History Question Answer Notes LastModified by Organizat ion Details LastModified Time Tobacco Smoking Status Never Smoker Molly fuentes [facility] [employer] [facility] 04/17/2023 10:00:20 Do You Have An Advance Directive? No [id number] Information not available 05/04/2022 What Is Your Level Of Alcohol Consumption? Occasional [id number] Information not available 05/04/2022 Is Blood Transfusion Acceptable In An Emergency? Yes [email or web address] Information not available 04/17/2023 What Is Your Level Of Caffeine Consumption? Moderate [id number] Information not available 05/04/2022 What Is Your Code Status? Full Code [email or web address] Information not available 04/17/2023 In The 14 Days Before Symptom Onset, Have You Had Close Contact With A Laboratory-confi rmed COVID-19 While That Case Was Ill? No [email or web address] Information not available 04/17/2023 In The 14 Days Before Symptom Onset, Have You Had Close Contact With A Person Who Is Under Investigation For COVID-19 While That Person Was Ill? No [email or web address] Information not available 04/17/2023 Are You Currently Employed? Yes Information not available 04/17/2023 What Type Of Diet Are You Following? REGULAR [id number] Information not available 05/04/2022 What Is The Highest Grade Or Level Of School You Have Completed Or The Highest Degree You Have Received? 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 2 [email or web address] Information not available 04/17/2023 On Those Days That You Engage In Moderate To Strenuous Exercise, How Many Minutes, On Average, Do You Exercise? 45 [email or web address] Information not available 04/17/2023 Have There Been Any Changes To Your Family Or Social Situation? No [email or web address] Information not available 04/17/2023 What Is The Fluoride Status Of Your Home? Fluoridated [email or web address] Information not available 04/17/2023 Do You Use Insect Repellent Routinely? Yes [email or web address] Information not available 04/17/2023 Where Do You Live? SingleLevelHouse [email or web address] Information not available 04/17/2023 Do You Have A Medical Power Of Photographic Laboratory Supervisor? No [email or web address] Information not available 04/17/2023 Do You Have Any Pets? No [email or web address] Information not available 04/17/2023 What Is Your Relationship Status? [id number] Information not available 05/04/2022 Do You Use Your Seat Belt Or Car Seat Routinely? Yes [email or web address] Information not available 04/17/2023 Do You Have Smoke And Carbon Monoxide Detectors In Your Home? Yes [email or web address] Information not available 04/17/2023 Are You Passively Exposed To Smoke? No Information not available 04/17/2023 Are There Any Smokers In Your House? No [email or web address] Information not available 04/17/2023 Do You Participate In Social Brevado? Yes [email or web address] Information not available 04/17/2023 What Types Of Sporting Activities Do You Participate In? Walking, Treadmill, Bike [email or web address] Information not available 04/17/2023 Do You Feel Stressed (tense, Restless, Nervous, Or Anxious, Or Unable To Sleep At Night)? [id number] [email or web address] Information not available 04/17/2023 Do You Use Any Illicit Or Recreational Drugs? No [email or web address] Information not available 04/17/2023 Do You Use Sunscreen Routinely? Yes [email or web address] Information not available 04/17/2023 Have You Recently Traveled Abroad? No [email or web address] Information not available 04/17/2023 Are You Currently In School? No [email or web address] Information not available 04/17/2023 Do You Or Have You Ever Used Any Other Forms Of Tobacco Or Nicotine? No Information not available 04/17/2023 Sex: Female Functional Status Question Answer Note LastModified by Organizat ion Details LastModified Time What is your exercise level? Moderate [id number] Information not available 05/04/2022 Mental Status None recorded. Family History Relationship Description Onset Age of this Age Resolved Age Notes LastModified by Organization Details LastModified Time Father No current problems or disability [id number] Not available 05/04/2022 01:31:07 Mother No current problems or disability [id number] Not available 05/04/2022 01:31:07 Medical History Condition Response BLINDNESS N RHEUMATIC FEVER N KIDNEY STONES N BLADDER PROBLEMS N MRSA N OTHER # 1 N POLIO N LUNG DISEASE/DISORDER N HISTORY OF DRUG ABUSE N COPD N RADIATION / CHEMOTHERAPY N Other # 2 N BLOOD DISEASES N SURGERY N EAR OR HEARING PROBLEMS N MUMPS N SHINGLES N FEMALE PROBLEMS / INFECTIONS N DEPRESSION (INCLUDING POST ) N BOWEL PROBLEMS N STROKE/TIA N THYROID DISEASE N ULCERS N BENIGN PROSTATIC HYPERPLASIA N MEASLES N CERVICALGIA N HYPOTENSION N TB SKIN TEST N MYOCARDIAL INFARCTION N OBESITY N PARAPELGIA N GERD/NAUSEA N ANEURYSM N URINARY/BLADDER/KIDNEY PROBLEMS N CORONARY ARTERY DISEASE (CAD) N MENIERE'S DISEASE N ADDICTION CONCERNS N ENDOMETRIOSIS N USE OF BLOOD THINNERS N SKIN PROBLEMS N EMPHYSEMA N GASTROINTESTINAL DISORDER N MUSCLE,JOINT OR BONE PROBLEMS N GASTROINTESTINAL BLEEDING N BLOOD CLOTS N ASTHMA N CATARACTS N ERECTILE DYSFUNCTION N GI PROBLEMS N CHF N Low Testosterone N NEUROPATHY N INFERTILITY N AIDS/HIV N FRACTURES N CHEMOTHERAPY / RADIATION N VISION/EYE PROBLEMS N LIVER DISEASE N MALE HYPOGONADISM N HYPERTENSION Y TOURETTE'S N ANXIETY DISORDER N BLOOD TRANSFUSION N ANEMIA/BLOOD DISORDER N CHRONIC EAR INFECTIONS N BRONCHITIS N TUBERCULOSIS N GLAUCOMA N FOOT PROBLEM N DIVERTICULITIS N SLEEP APNEA N CHICKENPOX N ALLERGIES/HAYFEVER N INFECTIOUS DISEASE N PROSTATE N HEART ARRHYTHMIA N INSOMNIA N HIGH CHOLESTEROL / HYPERLIPIDEMIA N EYE PROBLEMS N HYPERTHYROIDISM N EATING DISORDER N EDEMA N CHRONIC PAIN SYNDROME N CAROTID BLOCKAGE N CONSTIPATION N BACK / NECK PROBLEMS N HAVE YOU BEEN HOSPITALIZED OR SEEN IN [facility] IN THE PAST YEAR ? N ATHEROSCLEROSIS N BREAST PROBLEMS N DIALYSIS N ECZEMA N FIBROMYALGIA N OSTEOPOROSIS N ARTHRITIS N NO SIGNIFICANT PAST MEDICAL HISTORY N APPENDICITIS N DIABETES, TYPE N BAD TEETH N HEARTBURN / REFLUX N ADD/ADHD N AUTISM SPECTRUM DISORDER (ASD) N HEPATITIS / LIVER DISEASE N PULMONARY DISEASE N GOUT N SLEEP DISORDER N ALZHEIMER'S DISEASE N PAIN N DEMENTIA N HERPES N SEIZURES/EPILEPSY N HEADACHES/MIGRAINES N VASCULAR DISEASE N PACEMAKER N DIZZINESS N HEART DISEASE/HEART PROBLEMS N KIDNEY DISEASE N SCARLET FEVER N MULTIPLE SCLEROSIS N DEVELOPMENTAL OR BEHAVIORAL DISORDERS N MENTAL DISORDER/ILLNESS N CANCER: SPECIFY N CARDIAC ARRHYTHMIA N PNEUMONIA N ATRIAL FIBRILLATION N Gall Stones N PULMONARY EMBOLISM N AUTOIMMUNE DISEASE N Gynecological History Statement/Question Response Abnormal Pap N Date of Last Mammogram 05/07/2023 Flow Light Date of LMP 03/21/2024 Duration of Flow (days) 4 Most Recent Mammogram Current Control Method Tubal Ligat ion Age at Menarche 10 Date of Last Colonoscopy Frequency of Cycle (Q days) 28 Most Recent Bone Density Menses Monthly Y Date of Last Pap Smear 12/17/2023 Obstetrics History GPAL:G 4 P 4 0 0 0 Type Value Full Term 4 Total 4 Immunizations Vaccine Type Date Status Note Provider Nam e and Address Organization Details Recorded Time SARS-COV-2 (COVID-19) vaccine, UNSPECIFIED 0 completed Not Available [facility] 05/04/2022 01:32:06 Influenza, split virus, quadrivalent, PF 2 completed Not Available [facility] 05/04/2022 01:32:06 Influenza, split virus, quadrivalent, PF 3 completed Eli Avalos RN null, [facility] [employer] [facility] 12/19/2022 09:27:35 Influenza, split virus, trivalent, PF 4 completed Ammy French RN null, [facility] [facility] [employer] [facility] 01/21/2024 11:17:48 Past Encounters Encounter ID Performer Location Encounter Start Date Encounter Closed Date Diagnosis/Indication Diagnosis SNOMED-CT Code Diagnosis ICD10 Code Diagnosis Note [id number] [address] [address] 12/07/2021 00:00:00 12/07/2021 12:14:[id number] [address] 12/08/2021 00:00:00 12/15/2021 14:01:[id number] [address] 12/12/2021 00:00:00 12/14/2021 16:16:[id number] [address] 12/28/2021 00:00:00 12/28/2021 10:47:22 [id number] Eli Su NP [address] [address] 08/16/2022 08:33:23 08/16/2022 09:09:55 Essential hypertension 99823908 I10 Lisinopril 10 mg po daily. Get home bp cuff and check daily, record, and call in 1-2 weeks with readings. Goal 130/80. If not able to get a cuff, may return to office in 1-2 weeks for nurse bp check.Redu ce sodium and caffeine. Obese 689778417 E66.9 Diet and exercise advised. [id number] Eli Su NP [address] [address] 12/19/2022 07:57:39 12/19/2022 08:28:00 Essential hypertension 59737944 I10 Lisinopril 10 mg po daily. Get home bp cuff and check daily, record, and call in 1-2 weeks with readings. Goal 130/80. If not able to get a cuff, may return to office in 1-2 weeks for nurse bp check.Redu ce sodium and caffeine. 09/06/22 changing lisinopril to losartan per pt case.12/19 home bp 130/70s. Labs ordered. Obese 077921588 E66.9 Diet and exercise advised. Anemia screening 8049744 07 Z13.0 Diabetes m ellitus screening 617459385 Z13.1 Thyroid di sorder screening 930798978 Z13.29 Hyperlipid emia screening 646759383 Z13.220 Administra tion of influenza vaccine 08371808 Z23 [id number] Jerald Jurado MD [address] [address] 03/21/2023 09:00:22 03/21/2023 09:37:21 Hypertensive disorder 38776960 I10 Depressive disorder 3548 9007 F32.A Anxiety disorder 1281511 06 F41.9 Obesity 740125857 E66.9 [id number] Jerald Jurado MD [address] [address] 04/17/2023 09:59:45 04/17/2023 10:26:09 Hypertensive disorder 33255276 I10 Obesity 626159720 E66.9 [id number] Jerald Juardo MD [address] [address] 05/16/2023 11:44:02 05/16/2023 12:04:49 Obesity 638835178 E66.9 Depressive disorder 3548 9007 F32.A [id number] Jerald Jurado MD [address] [address] 07/16/2023 12:12:58 07/16/2023 12:51:40 Obesity 602026526 E66.9 Hypertensive disorder 38 660569 I10 Depressive disorder 3548 9007 F32.A [id number] Jerald Jurado MD [address] [address] 09/17/2023 09:32:24 09/17/2023 10:23:06 Obesity 392573813 E66.9 Depressive disorder 3548 9007 F32.A History an d physical examination, pre-employment 592501393 Z02.1 [id number] Jerald Jurado MD [address] [address] 11/19/2023 17:20:05 11/19/2023 17:45:00 Obesity 796801035 E66.9 Hypertensive disorder 38 042030 I10 [id number] Jerald Jurado MD [address] [address] 01/21/2024 09:08:46 01/21/2024 10:01:39 Hypertensive disorder 46714174 I10 Obesity 340078388 E66.9 Adult [facility] th examination 038182936 Z00.00 Screening for disorder 597611845 Z13.9 Administra tion of influenza vaccine 46450243 Z23 Overweight 665275220 E66 .3 History of obesity 28446 3001 Z91.89 [id number] [facility] [address] [place] [address] 02/20/2024 08:48:54 02/20/2024 09:19:55 Hypertensive disorder 74760313 I10 Obesity 757339166 E66.9 Overweight 455416398 E66 .3 History of obesity 17679 3001 Z91.89 Vitamin D deficiency 347 33960 E55.9 [id number] Jerald Jurado MD [facility] [address] [place] [address] 04/28/2024 17:00:07 04/28/2024 17:20:27 Hypertensive disorder 97546159 I10 Overweight 648503296 E66 .3 History of obesity 89805 3001 Z91.89 Health Concerns Section Related Observation LastModified by Organization Detai ls LastModified Time None Recorded Concern Status LastModified by Organization Details LastModified Time None Recorded Advance Directives Directive N: Payers Encounter Date Sequence Insurance Name Policy Number Policy Magaña Covered Member ID Magaña Member ID Guarantor Name 09/17/2023 1 [employer] ON OR AFTER 09/02/20 (MEDICAID REPLACEMENT - HMO) Ammy Munoz [id number] Ammy Munoz 11/19/2023 1 [employer] ON OR AFTER 09/02/20 (MEDICAID REPLACEMENT - HMO) Ammy Munoz [id number] Ammy Vans 01/21/2024 1 [employer] ON OR AFTER 09/02/20 (MEDICAID REPLACEMENT - HMO) Ammy Munoz [id number] Ammy Munoz 02/20/2024 1 [employer] ON OR AFTER 09/02/20 (MEDICAID REPLACEMENT - HMO) Ammy Munoz [id number] Ammy Munoz 04/28/2024 1 [employer] ON OR AFTER 09/02/20 (MEDICAID REPLACEMENT - HMO) Ammy Munoz [id number] Ammy Munoz Notes Date Note Type Note Provider Name and Address Organization Details Recorded Time 09/17/2023 text/html Pt is here for her mood and wt loss. Doing overall well. Denies any problem with meds. Pt has a form from her work to be filled out today. Happy with her results. No problem with med. So far, 22 lbs wt loss on it. Doing overall well with her mood and anxiety. Denies any mood swings/SI/HI. Jerald Jurado MD [address], [address], [place], [address], [employer] 09/17/2023 10:01:37 11/19/2023 text/html Pt is here for her HTN and wt loss. Doing overall well. Denies any problem with meds. Happy with her results. No problem with med. So far, 32 lbs wt loss on it. Pt is not checking her BP at home yet. Doing overall well with her mood and anxiety. Denies any mood swings/SI/HI. Jerald Jurado MD [address] [facility] [address], [place], [address], [employer] 11/19/2023 17:39:27 01/21/2024 text/html Pt is here for her annual exam. Doing overall well. Denies any problem with meds. Denies any new concern. Happy with her results. No problem with med. So far, 39 lbs wt loss on it. Pt is checking her BP at home and its good as per pt. No concern with it. Doing overall well with her mood and anxiety. Denies any mood swings/SI/HI. Jerald Jurado MD [address] [facility] [address], [place], [address], [employer] 01/21/2024 09:49:05 02/20/2024 text/html Pt is here for f/u on her annual labs. Doing overall well. Denies any problem with meds. Denies any new concern. Happy with her results. No problem with med. So far, 41 lbs wt loss on it. Pt is checking her BP at home and its good as per pt. No concern with it. Doing overall well with her mood and anxiety. Denies any mood swings/SI/HI. Jerald Jurado MD [address], [address], [place], [address], [employer] 02/20/2024 09:19:42 04/28/2024 text/html Pt is here for f/u on her meds and chronic conditions. Doing overall well. Denies any problem with meds. Denies any new concern. Happy with her results. No problem with med. So far, 38 lbs wt loss on it. Pt is checking her BP at home and its good as per pt. No concern with it. Doing overall well with her mood and anxiety. Denies any mood swings/SI/HI. Jerald Jurado MD [address] [facility] [address], [place], [address], [employer] 04/28/2024 17:24:51 OBGyn Episode No OBEpisode recorded.
== END 2024-05-10 08:08 | disposition home or self-care (01) ==
LOC: ANHIMG 08:10
PROVIDERS: PCP Family Medicine; Visit Provider Obstetrics & Gynecology
DX: Z12.31 Encounter for screening mammogram for malignant neoplasm of breast (principal)
CPT/HCPCS: 77063; 77067

== ENCOUNTER 2025-02-17 10:35 | Outpatient (CLI) | payer OTHER, SELFPAY ==
--- NOTE | ~2025-02-17 | US_ITS ---
EXAMINATION: US venous doppler LE RT, 02/17/2025 10:56 GRAD INTERN HISTORY: CALF PAIN Comparison: None Technique: Chan-scale and color Doppler images were attempted of the lower saphenofemoral junction, common femoral vein,superficial femoral vein, proximal deep femoral vein, proximal deep femoral vein, popliteal vein and posterior tibial veins. Findings: Deep Venous System:Normal flow, augmentation and compressibility. No echogenic thrombus identified. The contralateral saphenofemoral junction appears unremarkable. Superficial Venous SystemNo superficial thrombophlebitis. Soft tissues: Soft tissues are unremarkable. Impression: Negative for DVT. Reviewed, dictated and finalized at location P. INTERN Impression: Negative for DVT.
--- NOTE | ~2025-02-17 | XR_ITS ---
EXAMINATION: XR knee RT 3V, 02/17/2025 11:18 [employer] HISTORY: PAIN IN RIGHT KNEE, NKI COMPARISON: No comparisons available. Findings: No acute fracture or malalignment. Moderate to severe tricompartmental degenerative changes, small effusion Soft tissues unremarkable. Impression: No acute fracture or malalignment. Reviewed, dictated and finalized at location P. LANE CHARTER CLERK Impression: No acute fracture or malalignment.
== END 2025-02-17 10:36 | disposition home or self-care (01) ==
PROVIDERS: PCP Family Medicine; Visit Provider Family Medicine
DX: M79.661 Pain in right lower leg (principal)
CPT/HCPCS: 73562; 93971